=== PATIENT | female | born 1950 | race Caucasian/White ===

== ENCOUNTER 2016-04-26 13:30 | Day surgery (SDC) | payer OTHER ==
[~2016-04-26] VITALS: Ht 170.2 cm; Wt 66.2 kg
[~2016-04-26 13:30] MED LIST: CARISOPRODOL350 MG PO; CONCERTA18 MG PO; COUMADIN2.5 MG PO; CYANOCOBAL1000 MCG/2 IM; DILAUDID2 MG PO; ENDOCET 5-3251 EACH PO; FLOMAX0.4 MG PO; FOLIC ACID0.4 MG PO; GABAPENTIN300 MG PO; HYDROXYZINE PAM25 MG PO; INCRUSE ELLI62.5 MCG IH; KEFLEX500 MG PO; LEXAPRO10 MG PO; LEXAPRO20 MG PO; NEURONTIN300 MG PO; NEXIUM40 MG PO; PERCOCET 5/31 TABLET PO; PROMETHAZINE HC25 M1 PO; PROTONIX40 MG PO; RITALIN LA20 MG PO; ROXICET 5-3251 EACH PO; ROXICET 5-5001 EACH PO; SULFAZINE500 M1 PO; VISTARIL25 MG PO; VITAMIN D31000 UNIT PO; WARFARIN SODIU2.5 MG PO; XANAX0.25 MG PO; ZYCAM BOTH NARES
== END 2016-04-26 14:56 | disposition home or self-care (01) ==
LOC: PAIN 13:30 → SDC 14:00 → PAIN 14:56
DX: M54.16 Radiculopathy, lumbar region (principal); M19.90 Unspecified osteoarthritis, unspecified site; M47.816 Spondylosis without myelopathy or radiculopathy, lumbar region; F41.1 Generalized anxiety disorder
CPT/HCPCS: J1100; J2250; J3010

== ENCOUNTER 2016-06-24 10:56 | Emergency (ER) | payer OTHER ==
[~2016-06-24] VITALS: Ht 170.2 cm; Wt 62.7 kg
[2016-06-24] MEDS ORDERED: FLEXERIL10 MG PO (11:38)
[2016-06-24 11:39] LABS: BASOPHIL COUNT 0.1 K/uL (0-0.1); EOSINOPHIL (%) 1.5 % (0-5); EOSINOPHIL COUNT 0.2 K/uL (0-0.3); IMMATURE GRANULOCYTE (%) 0.3 % (0.0-0.7); INSTRUMENT ABS NEUTROPHIL CT 8.3 K/uL; MCHC 34.2 G/DL (30.0-36.0); MCV 96.4 FL (83-99); MEAN PLAT.VOLUME 9.1 uM^3 (9.5-12.4); MONOCYTE (%) 6.9 % (3-12); MONOCYTE COUNT 0.8 K/uL (0-0.8); NEUTROPHIL (%) 73.4 % (45-76); NEUTROPHIL COUNT 8.3 K/uL (1.8-6.4); PLATELET COUNT 309 K/uL (156-360); RBC DIS.WIDTH-CV 12.4 % (11.8-14.6); RBC DIS.WIDTH-SD 44.2 % (39-53); RED BLOOD COUNT 4.46 M/uL (3.80-5.20); WHITE BLOOD COUNT 11.4 K/uL (4.1-10.2)
[2016-06-24 11:47] LABS: CHLORIDE 102 mEq/L (99-109); POTASSIUM 3.6 mEq/L (3.7-5.4); SODIUM 133 mEq/L (136-147)
[2016-06-24 11:49] LABS: GLUCOSE 87 mg/dL (70-99)
[2016-06-24 11:51] LABS: ANION GAP 11 MEQ/L (2-14); TOTAL BILIRUBIN 0.7 mg/dL (0.0-1.0)
[2016-06-24 11:53] LABS: ALKALINE PHOSPHATASE 116 IU/L (3-129); GFR ESTIMATE (CALCULATED) 48 mL/min/
[2016-06-24 11:54] LABS: UREA NITROGEN (BUN) 20 mg/dL (9-23)
[2016-06-24 11:59] LABS: TROP-I INTERPRETATION NEGATIVE; TROPONIN-I < 0.01 ng/mL (0.0-0.30)
[2016-06-24 12:14] LABS: ADD MIUA? YES; BILIRUBIN NEGATIVE; BLOOD NEGATIVE; COLOR YELLOW ((YELLOW)); GLUCOSE (STRIP) NEGATIVE; KETONES NEGATIVE; LEUKOCYTES NEGATIVE; NITRITE NEGATIVE; PROTEIN (STRIP) NEGATIVE; SPECIFIC GRAVITY 1.004 (1.000-1.030); UROBILINOGEN 0.2 MG/DL (0.2-1.0)
[2016-06-24 12:22] LABS: BACTERIA 1+ /HPF; EPITHELIAL CELLS RARE /HPF; MUCUS NONE SEEN /LPF; RED BLOOD CELLS 0-5 /HPF (0-5); UCUL ADDED? NO
[2016-06-24 14:08] LABS: TROP-I INTERPRETATION NEGATIVE; TROPONIN-I < 0.01 ng/mL (0.0-0.30)
[2016-06-24 14:31] VITALS: BP 120/78
== END 2016-06-24 14:30 | disposition home or self-care (01) ==
LOC: EME → EDBD 10:56 → EME 10:56
PROVIDERS: Emergency Medicine
DX: R06.00 Dyspnea, unspecified (principal); R06.2 Wheezing; G89.29 Other chronic pain; M54.41 Lumbago with sciatica, right side; F11.20 Opioid dependence, uncomplicated; F17.200 Nicotine dependence, unspecified, uncomplicated; Z88.5 Allergy status to narcotic agent; Z88.1 Allergy status to other antibiotic agents; F12.10 Cannabis abuse, uncomplicated; J45.909 Unspecified asthma, uncomplicated; Z87.442 Personal history of urinary calculi; Z86.73 Personal history of transient ischemic attack (TIA), and cerebral infarction without residual deficits; M79.7 Fibromyalgia; Z93.4 Other artificial openings of gastrointestinal tract status
CPT/HCPCS: 71020; 80053; 81003; 84484; 85025; 93005; 99281; 99285

== ENCOUNTER 2017-03-21 06:48 | Observation (INO) | payer OTHER ==
[~2017-03-21] VITALS: Ht 170.2 cm; Wt 50.8 kg
[~2017-03-21 06:48] MED LIST changes: +FLEXERIL10 MG PO
[2017-03-21 07:51] LABS: HEMATOCRIT 41.8 % (36.0-46.0); MCH 33.2 PG (29.0-34.0); MCV 97.7 FL (83-99); MEAN PLAT.VOLUME 9.3 uM^3 (9.5-12.4); PLATELET COUNT 333 K/uL (156-360); RBC DIS.WIDTH-CV 12.8 % (11.8-14.6); RBC DIS.WIDTH-SD 45.3 % (39-53); RED BLOOD COUNT 4.28 M/uL (3.80-5.20); WHITE BLOOD COUNT 9.6 K/uL (4.1-10.2)
[2017-03-21 08:17] LABS: TROP-I INTERPRETATION NEGATIVE; TROPONIN-I < 0.01 ng/mL (0.0-0.30)
[2017-03-21 08:23] LABS: ANION GAP 9 MEQ/L (2-14); CHLORIDE 108 MEQ/L (99-109); GFR ESTIMATE (CALCULATED) > 59 mL/min/; GLUCOSE 105 mg/dL (70-99); POTASSIUM 4.2 MEQ/L (3.7-5.4); SAMPLE HEMOLYSIS CHECK 0; SAMPLE ICTERIC CHECK 0; SAMPLE LIPEMIA CHECK 0; SODIUM 138 MEQ/L (136-147); UREA NITROGEN (BUN) 25 mg/dL (9-23)
[2017-03-21 10:53] LABS: ADD MIUA? YES; BILIRUBIN NEGATIVE; BLOOD NEGATIVE; COLOR YELLOW ((YELLOW)); GLUCOSE (STRIP) NEGATIVE; KETONES 5; LEUKOCYTES LARGE; NITRITE NEGATIVE; PROTEIN (STRIP) 30; SPECIFIC GRAVITY 1.019 (1.000-1.030); UROBILINOGEN 0.2 MG/DL (0.2-1.0)
[2017-03-21 10:57] LABS: BACTERIA RARE /HPF; EPITHELIAL CELLS 1+ /HPF; GRANULAR CASTS 0-5 /LPF; HYALINE CASTS 0-5 /LPF; MUCUS TRACE /LPF; RED BLOOD CELLS 0-5 /HPF (0-5)
[2017-03-21] MEDS ORDERED: NEURONTIN300 MG PO (11:04)
[2017-03-21] MEDS ORDERED: OXYCODONE HCL10 MG PO (11:13)
[2017-03-21] MEDS ORDERED: STIOLTO RESPIMAT4 GM IH (11:13)
[2017-03-21] MEDS ORDERED: FENTANYL1 EAC4 TD (11:15)
[2017-03-21 14:03] VITALS: BP 135/66
[2017-03-21 15:35] LABS: TROP-I INTERPRETATION NEGATIVE; TROPONIN-I < 0.01 ng/mL (0.0-0.30)
[2017-03-21 16:34] VITALS: BP 116/58
[2017-03-21 21:00] VITALS: BP 107/55; BP 115/70; BP 117/65
[2017-03-22] VITALS: BP 120/78
[2017-03-22 00:10] LABS: TROP-I INTERPRETATION NEGATIVE; TROPONIN-I < 0.01 ng/mL (0.0-0.30)
[2017-03-22 05:39] LABS: HEMATOCRIT 39.6 % (36.0-46.0); MCH 32.6 PG (29.0-34.0); MCHC 32.8 G/DL (30.0-36.0); MCV 99.2 FL (83-99); MEAN PLAT.VOLUME 9.4 uM^3 (9.5-12.4); PLATELET COUNT 323 K/uL (156-360); RBC DIS.WIDTH-CV 12.6 % (11.8-14.6); RBC DIS.WIDTH-SD 45.9 % (39-53); RED BLOOD COUNT 3.99 M/uL (3.80-5.20); WHITE BLOOD COUNT 5.7 K/uL (4.1-10.2)
[2017-03-22 06:05] LABS: ALKALINE PHOSPHATASE 86 IU/L (3-129); ANION GAP 5 MEQ/L (2-14); CHLORIDE 112 MEQ/L (99-109); GFR ESTIMATE (CALCULATED) > 59 mL/min/; GLUCOSE 93 mg/dL (70-99); POTASSIUM 4.6 MEQ/L (3.7-5.4); SAMPLE HEMOLYSIS CHECK 0; SAMPLE ICTERIC CHECK 0; SAMPLE LIPEMIA CHECK 0; SODIUM 138 MEQ/L (136-147); TOTAL BILIRUBIN 0.4 MG/DL (0.0-1.0); UREA NITROGEN (BUN) 21 mg/dL (9-23)
[2017-03-22 08:30] VITALS: BP 122/78
[2017-03-22 11:27] VITALS: BP 134/65
== END 2017-03-22 16:30 | disposition home or self-care (01) ==
LOC: EME → EDBD 06:48 → EME 06:48 → 5WEST 09:35 → EDOF 09:35 → ENRESERV 10:06 → 5WEST 13:40
PROVIDERS: Internal Medicine; Physician Assistant Medical
DX: R07.9 Chest pain, unspecified (principal); K51.90 Ulcerative colitis, unspecified, without complications; Z93.3 Colostomy status; M19.90 Unspecified osteoarthritis, unspecified site; E78.5 Hyperlipidemia, unspecified; J44.9 Chronic obstructive pulmonary disease, unspecified; K21.9 Gastro-esophageal reflux disease without esophagitis; M81.0 Age-related osteoporosis without current pathological fracture; M51.9 Unspecified thoracic, thoracolumbar and lumbosacral intervertebral disc disorder; E53.8 Deficiency of other specified B group vitamins; F41.9 Anxiety disorder, unspecified; F32.9 Major depressive disorder, single episode, unspecified; F17.200 Nicotine dependence, unspecified, uncomplicated; G89.29 Other chronic pain; Z79.891 Long term (current) use of opiate analgesic; F98.8 Other specified behavioral and emotional disorders with onset usually occurring in childhood and adolescence; Z87.442 Personal history of urinary calculi; Z82.49 Family history of ischemic heart disease and other diseases of the circulatory system
CPT/HCPCS: 71010; 80048; 80053; 81003; 84484; 85027; 93005; 94640; 99281; 99284; G0378; J7030; J7040